=== PATIENT | female | born 2000 | race Caucasian/White ===

== ENCOUNTER 2025-06-09 15:00 | Emergency (ER) | payer SELFPAY ==
[2025-06-09] MEDS ORDERED: Acetaminophen 500 MG TAB ONE (15:40)
[2025-06-09] MEDS ORDERED: Cyclobenzaprine 10 MG TAB ONE (16:39)
== END 2025-06-09 16:59 | disposition home or self-care (01) ==
LOC: CSHERS 15:00
DX: M25.561 Pain in right knee (principal); X58.XXXA Exposure to other specified factors, initial encounter; Y99.0 Civilian activity done for income or pay
CPT/HCPCS: 99283